=== PATIENT | female | born 1930 | race Caucasian/White ===

== ENCOUNTER 2017-08-28 06:29 | Day surgery (SDC) | payer MEDICARE, OTHER ==
[~2017-08-28 06:29] MED LIST: Lactated Ringers 1,000 ML IV SCH; ceFAZolin 2 GM in Premix Bag 1 BAG IV SCH
[2017-08-28] MEDS ORDERED: Bupivacaine 0.5% 30 ML SDV ONE (07:23)
[2017-08-28] MEDS ORDERED: Lidocaine 1% 20 ML MDV ONE (07:23)
--- NOTE | 2017-08-28 07:23 | PCM.PREANE ---
Preanesthetic Assessment - Anesthesia/Transfusion/Family Hx Anesthesia History: Prior Anesthesia Reaction Type of Anesthesia Reaction: Excessive Nausea/Vomiting Other Type of Anesthesia Reaction Comment: from morphine/codeine...OK with Fentanyl Family History of Anesthesia Reaction: No Transfusion History: Prior Transfusion Without Reaction - Review of Systems General: No Symptoms Pulmonary: No Symptoms Cardiovascular: No Symptoms Gastrointestinal: No Symptoms Neurological: No Symptoms Other: Reports: None - Physical Assessment NPO Status Date: 08/27/17 NPO Status Time: 23:00 Height: 1.63 m Weight: 68.039 kg ASA Class: 2 Airway Class: Mallampati = 2 Dentition: Reports: Normal Dentition, Partial ROM/Head Extension: Full Lungs: Clear to Auscultation, Normal Respiratory Effort Cardiovascular: Regular Rate, Regular Rhythm - Allergies Allergies/Adverse Reactions: Allergies Allergy/AdvReac Type Severity Reaction Status Date / Time brimonidine [From Alphagan P] Allergy Itching Verified 08/25/17 13:03 codeine Allergy Nausea and Verified 08/25/17 13:01 Vomiting morphine Allergy Nausea and Verified 08/25/17 13:01 Vomiting - Anesthesia Plan Pre-Op Medication Ordered: None - Acknowledgements Anesthesia Type Planned: General Anesthesia Pt an Appropriate Candidate for the Planned Anesthesia: Yes Alternatives and Risks of Anesthesia Discussed w Pt/Guardian: Yes Pt/Guardian Understands and Agrees with Anesthesia Plan: Yes PreAnesthesia Questionnaire HEENT History: Reports: Cataract, Glaucoma Other HEENT History: wears glasses Cardiovascular History: Reports: Heart Murmur, High Cholesterol, Hypertension Gastrointestinal History: Reports: GERD Genitourinary History: Reports: Urinary Incontinence Other Genitourinary History: after back surgery Musculoskeletal History: Reports: Fracture Other Musculoskeletal History: hx of fx left ankle Hematologic History: Reports: Blood Transfusion(s) Other Hematologic History: Autotransfusion and platlets Dermatologic History: Reports: Eczema - Past Surgical History Head Surgeries/Procedures: Reports: None HEENT Surgical History: Reports: Cataract Surgery, Tonsillectomy, Other (See Below) Other HEENT Surgeries/Procedures: had "tubes" put in eyes to drain fluid to treat Glaucoma GI Surgical History: Reports: Colonoscopy Female Surgical History: Reports: Breast Biopsy, Hysterectomy Neurological Surgical History: Reports: Spinal Fusion Other Neurological Surgeries/Procedures: has hardware Musculoskeletal Surgical History: Reports: Carpal Tunnel, ORIF, Other (See Below ) Other Musculoskeletal Surgeries/Procedures:: ORIF left ankle (has screws),. right IESHA, tendon repair in finger - SUBSTANCE USE Smoking Status *Q: Former Smoker Days Per Week of Alcohol Use: 2 Recreational Drug Use History: No - HOME MEDS Home Medications: Home Meds Aspirin [Adult Low Dose Aspirin EC] 81 mg PO DAILY 08/25/17 [History] Calcium Carbonate/Vitamin D3 [Calcium 600 + Vit D 400 Softgl] 1 cap PO TID 08/25 [History] Esomeprazole Magnesium [Nexium] 20 mg PO DAILY 08/25/17 [History] Losartan Potassium 100 mg PO QPM 08/25/17 [History] Metoprolol Succinate 25 mg PO QPM 08/25/17 [History] Naproxen Sodium [Aleve] 220 mg PO BID 08/25/17 [History] Pe Ell-3/DHA/Epa/Fish Oil [Fish Oil 1,400 MG Softgel] 1 cap PO DAILY 08/25/17 [ History] Simvastatin [Zocor] 20 mg PO BEDTIME 08/25/17 [History] Triamcinolone Acetonide [Triamcinolone Acetonide 0.1% Crm] 1 dose TOP ASDIRECTED PRN 08/25/17 [History] Vitamin B Complex [B Complex] 1 tab PO DAILY 08/25/17 [History] amLODIPine Besylate [Amlodipine Besylate] 10 mg PO QAM 08/25/17 [History] - CURRENT (IN HOUSE) MEDS Current Meds: Current Medications Lactated Ringer's (Ringers, Lactated) 1,000 mls @ 125 mls/hr IV ASDIRECTED MALU Last Admin: 08/28/17 07:08 Dose: 125 mls/hr Cefazolin Sodium/Dextrose 2 gm (/ Premix) 50 mls @ 100 mls/hr IV ONETIME MALU
[2017-08-28] MEDS ORDERED: Lidocaine 2% 5 ML SDV ONE (07:38)
[2017-08-28] MEDS ORDERED: Propofol 200 MG/20 ML SDV ONE (07:39)
[2017-08-28] MEDS ORDERED: Midazolam 1 MG/ML 2 ML SDV ONE (07:39)
[2017-08-28] MEDS ORDERED: fentaNYL 100 MCG/2 ML SDV ONE (07:39)
[2017-08-28] MEDS ORDERED: Ondansetron 4 MG/2 ML SDV ONE (08:51)
[2017-08-28] MEDS ORDERED: fentaNYL 100 MCG/2 ML SDV IVPUSH PRN (08:53)
[2017-08-28] MEDS ORDERED: Ondansetron 4 MG/2 ML SDV IVPUSH PRN (09:05)
[2017-08-28] MEDS ORDERED: traMADol 50 MG Tab PO PRN (09:09)
--- NOTE | 2017-08-28 09:12 | PCM.OPNOTE ---
- General Post-Op/Procedure Note Date of Surgery/Procedure: 08/28/17 Operative Procedure(s): Repair incarcerated right femoral hernia. Excision recurrent left forehead basal cell skin cancer. Pre Op Diagnosis: Right groin mass. Recurrent left forehead basal cell skin cancer. Post-Op Diagnosis: Incarcerated right femoral hernia. Recurrent left forehead basal cell skin cancer. Anesthesia Technique: General LMA (ASA II) Primary Surgeon: Cristhian Vitale Fluid Replacement, Intraop: 750 EBL in mLs: 5 Condition: Good Free Text/Narrative:: Dictation [id number]
[2017-08-28] MEDS ORDERED: Lactated Ringers 1,000 ML IV SCH (09:15)
--- NOTE | 2017-08-28 10:07 | PCM48HPAN ---
Post Anesthesia Note - EVALUATION WITHIN 48HRS OF ANESTHETIC Vital Signs in Normal Range: Yes Patient Participated in Evaluation: Yes Respiratory Function Stable: Yes Airway Patent: Yes Cardiovascular Function Stable: Yes Hydration Status Stable: Yes Pain Control Satisfactory: Yes Nausea and Vomiting Control Satisfactory: Yes Mental Status Recovered: Yes
--- NOTE | 2017-08-28 10:07 | PCM.POSTAN ---
POST ANESTHESIA ASSESSMENT - MENTAL STATUS Mental Status: Alert, Oriented - RESPIRATORY Respiratory Status: Respiratory Rate WNL, Airway Patent, O2 Saturation Stable - CARDIOVASCULAR CV Status: Pulse Rate WNL, Blood Pressure Stable - GASTROINTESTINAL GI Status: No Symptoms - POST OP HYDRATION Hydration Status: Adequate & Stable
--- NOTE | 2017-08-28 10:43 | OR ---
SURGEON: Cristhian Vitale M.D. DATE OF PROCEDURE: 08/28/2017 OPERATION PERFORMED: 1. Repair of incarcerated right femoral hernia. 2. Excision recurrent basal cell, left forehead. ANESTHESIA: General LMA. ASA CLASSIFICATION: II. PREOPERATIVE DIAGNOSES: 1. Right groin mass. 2. Recurrent basal cell carcinoma, left forehead. POSTOPERATIVE DIAGNOSES: 1. Incarcerated right femoral hernia. 2. Recurrent basal cell skin cancer. DESCRIPTION OF PROCEDURE: The patient was taken to the operating room and placed on the operating table in the supine position. Time-out was called for appropriate identification of the patient and procedure. Both surgical sites had been marked prior to the patient entering the operating room. Thigh-high TEDs and sequential compression boots were placed. Following satisfactory attainment of general anesthesia with placement of an LMA, the right groin was prepped with DuraPrep solution. Sterile drapes were applied. Skin incision was marked out directly over the mass and infiltrated with 0.5% Marcaine solution. The skin incision was made and deepened through the subcutaneous tissue obtaining hemostasis with the use of electrocautery. The mass initially had been felt to be a lymph node; however, once we dissected down to it, one could easily see that this was a hernia. The hernia neck was circumferentially dissected free and the hernia was then able to be reduced. The defect was approximately 1 cm in size. This was repaired with interrupted 0 Ethibond suture to Basilio's ligament inferiorly and to the inguinal ligament superiorly. This nicely closed the defect. The wound was inspected for hemostasis. No bleeding was noted. The subcutaneous tissue and Nelson's fascia was closed with running 3-0 Polysorb. The skin edges were reapproximated with subcuticular 4-0 Monocryl. The skin was Steri-Stripped and dressed with a sterile Tegaderm pad. Our attention was now turned to the forehead. The forehead was prepped with Betadine solution. Sterile drapes were applied. Elliptical skin incision was made with a 1 mm margin superiorly and inferiorly. The specimen was sent separately in formalin for histologic confirmation. With that accomplished, the incision was closed with running locked 5-0 nylon. The skin was dressed with antibiotic ointment. Sponge, needle, and instrument counts for both procedures were correct. The patient tolerated the procedure well. Following emergence from anesthesia and extubation, she was taken to recovery room in stable condition. MORIAH HERNANDEZ /[id number]
== END 2017-08-28 10:15 ==
LOC: MW.SDS 06:29
PROVIDERS: ATTEND Surgery
DX: K41.30 Unilateral femoral hernia, with obstruction, without gangrene, not specified as recurrent (principal); C44.319 Basal cell carcinoma of skin of other parts of face; I10 Essential (primary) hypertension; I34.0 Nonrheumatic mitral (valve) insufficiency; I35.1 Nonrheumatic aortic (valve) insufficiency; I35.8 Other nonrheumatic aortic valve disorders; E78.00 Pure hypercholesterolemia, unspecified; K21.9 Gastro-esophageal reflux disease without esophagitis; M17.11 Unilateral primary osteoarthritis, right knee; Z87.891 Personal history of nicotine dependence; Z88.5 Allergy status to narcotic agent; Z91.011 Allergy to milk products; Z79.1 Long term (current) use of non-steroidal anti-inflammatories (NSAID); Z79.82 Long term (current) use of aspirin; Z79.899 Other long term (current) drug therapy; Z98.1 Arthrodesis status; Z98.49 Cataract extraction status, unspecified eye; Z96.649 Presence of unspecified artificial hip joint; Z90.89 Acquired absence of other organs; Z98.890 Other specified postprocedural states
CPT/HCPCS: 11643; 49553; 88305; J2250; J2405; J3010; J7120; 00300; J2704